=== PATIENT | female | born 1945 | race Caucasian/White ===

== ENCOUNTER 2020-09-25 14:39 | Outpatient (CLI) | payer MEDICARE ==
[2020-09-25 15:07] LABS: BASOPHILS # (AUTO) 0.1 10^3/uL (0.0-0.1); BASOPHILS % (AUTO) 0.8 %; EOSINOPHILS # (AUTO) 0.3 10^3/uL (0.0-0.7); EOSINOPHILS % (AUTO) 3.2 %; HCT - HEMATOCRIT 39.4 % (37.0-47.0); LYMPHOCYTES # (AUTO) 3.3 10^3/uL (1.5-3.5); MEAN CORPUSCULAR HEMOGLOBIN 31.4 pg (27.0-31.0); MEAN CORPUSCULAR VOLUME 95.2 fL (81.0-99.0); MEAN PLATELET VOLUME 9.1 fL (7.9-10.8); MONOCYTES # (AUTO) 0.6 10^3/uL (0.0-1.0); MONOCYTES % (AUTO) 6.6 %; NEUTROPHILS # (AUTO) 4.5 10^3/uL (1.5-6.6); NEUTROPHILS % (AUTO) 51.3 %; PLT - PLATELET COUNT 284 10^3/uL (130-450); RED BLOOD COUNT 4.14 10^6/uL (4.20-5.40); RED CELL DISTRIBUTION WIDTH 13.6 % (12.0-15.0); WHITE BLOOD COUNT 8.8 x10^3/uL (4.8-10.8)
[2020-09-25 15:27] LABS: ALBUMIN 4.2 g/dL (3.2-5.5); ALBUMIN/GLOBULIN RATIO 1.4 (1.0-2.2); ALKALINE PHOSPHATASE 76 IU/L (42-121); ALT ALANINE AMINOTRANSFERASE 25 IU/L (10-60); AST ASPARTATE AMINOTRANSFERASE 19 IU/L (10-42); BILIRUBIN,TOTAL 0.5 mg/dL (0.2-1.0); BUN - BLOOD UREA NITROGEN 19 mg/dL (6-20); CALCIUM 9.2 mg/dL (8.5-10.3); CARBON DIOXIDE - CO2 24 mmol/L (21-32); CHLORIDE 100 mmol/L (101-111); CHOL/HDL RATIO 5.7 (<4.4); CHOLESTEROL 256 mg/dL; CREATININE 1.1 mg/dL (0.4-1.0); GFR - MDRD 49 (>89); GLUCOSE 233 mg/dL (70-100); HDL CHOLESTEROL 45 mg/dL; POTASSIUM 4.4 mmol/L (3.5-5.0); SODIUM 136 mmol/L (135-145); TOTAL PROTEIN 7.2 g/dL (6.7-8.2); TRIGLYCERIDES 492 mg/dL
[2020-09-25 15:38] LABS: THYROID STIMULATING HORMONE 3.52 uIU/mL (0.34-5.60)
[2020-09-25 17:06] LABS: LDL CHOLESTEROL,DIRECT 151 mg/dL; LDLD/HDL RATIO 3.4 (<4.4)
[2020-09-25 19:58] LABS: ESTIMATED AVERAGE GLUCOSE 206 mg/dL (70-100); HEMOGLOBIN A1c% 8.8 % (4.27-6.07)
== END 2020-09-25 14:40 | disposition home or self-care (01) ==
LOC: LAB 14:39
PROVIDERS: ATTEND Internal Medicine
DX: I10 Essential (primary) hypertension (principal); E78.5 Hyperlipidemia, unspecified; E11.9 Type 2 diabetes mellitus without complications; E03.9 Hypothyroidism, unspecified
CPT/HCPCS: 36415; 80053; 80061; 83036; 83721; 84443; 85025

== ENCOUNTER 2021-01-06 07:56 | Outpatient (CLI) | payer MEDICARE ==
[2021-01-06 09:09] LABS: THYROID STIMULATING HORMONE 3.91 uIU/mL (0.34-5.60)
[2021-01-06 09:11] LABS: FREE T4 (FREE THYROXINE) 1.14 ng/dL (0.58-1.64)
[2021-01-06 12:45] LABS: ESTIMATED AVERAGE GLUCOSE 163 mg/dL (70-100); HEMOGLOBIN A1c% 7.3 % (4.27-6.07)
== END 2021-01-06 07:57 | disposition home or self-care (01) ==
LOC: LAB 07:56
PROVIDERS: ATTEND Internal Medicine
DX: E03.9 Hypothyroidism, unspecified (principal); E11.9 Type 2 diabetes mellitus without complications
CPT/HCPCS: 36415; 83036; 84439; 84443

== ENCOUNTER 2021-03-25 03:44 | Emergency (ER) | payer MEDICARE ==
[2021-03-25 04:13] LABS: BASOPHILS # (AUTO) 0.1 10^3/uL (0.0-0.1); BASOPHILS % (AUTO) 0.8 %; EOSINOPHILS # (AUTO) 0.4 10^3/uL (0.0-0.7); EOSINOPHILS % (AUTO) 4.2 %; HCT - HEMATOCRIT 40.5 % (37.0-47.0); HGB - HEMOGLOBIN 13.5 g/dL (12.0-16.0); LYMPHOCYTES # (AUTO) 4.4 10^3/uL (1.5-3.5); LYMPHOCYTES % (AUTO) 43.6 %; MEAN CORPUSCULAR HEMOGLOBIN 32.1 pg (27.0-31.0); MEAN CORPUSCULAR HGB CONC 33.3 g/dL (32.0-36.0); MEAN CORPUSCULAR VOLUME 96.2 fL (81.0-99.0); MEAN PLATELET VOLUME 9.2 fL (7.9-10.8); MONOCYTES # (AUTO) 0.6 10^3/uL (0.0-1.0); MONOCYTES % (AUTO) 5.7 %; NEUTROPHILS # (AUTO) 4.5 10^3/uL (1.5-6.6); NEUTROPHILS % (AUTO) 44.7 %; PLT - PLATELET COUNT 335 10^3/uL (130-450); RED BLOOD COUNT 4.21 10^6/uL (4.20-5.40); RED CELL DISTRIBUTION WIDTH 13.6 % (12.0-15.0); WHITE BLOOD COUNT 10.1 x10^3/uL (4.8-10.8)
--- NOTE | 2021-03-25 04:27 | ED Physician Documentation ---
PD HPI CHEST PAIN - Stated complaint Stated Complaint: CHEST PX - Chief complaint Chief Complaint: Cardiac - History obtained from History obtained from: Patient - History of Present Illness Timing - onset during: Rest Timing - duration: Hours Timing - details: Gradual onset, Intermittant Quality: Pain Radiation: Right upper extremity (right shoulder) Improved by: Other (no ameliorating factors) Worsened by: Other (no exacerbating factors) Associated symptoms: No: Shortness of air, Diaphoresis, Nausea, Feeling faint / dizzy, Palpitations Similar symptoms before: Has not had sx before Recently seen: Not recently seen - Additional information Additional information: c/o midline chest pain radiating to right shoulder, episodic and only at night for past 2-3 weeks. She does not have this during the day. She says she initially thought the timing was correlative with when she would take her aspirin and, per patient, her PMD prescribed plavix to take the place of aspirin, but she finds that the symptoms have not improved. She says the symptoms last all night (continuously for several hours each night) Review of Systems Constitutional: reports: Reviewed and negative Cardiac: reports: Chest pain / pressure. denies: Palpitations, Pedal edema Respiratory: reports: Reviewed and negative GI: reports: Reviewed and negative Musculoskeletal: reports: Reviewed and negative Neurologic: reports: Reviewed and negative PD PAST MEDICAL HISTORY - Past Medical History Past Medical History: Yes Cardiovascular: High cholesterol - Allergies Allergies/Adverse Reactions: Allergies Allergy/AdvReac Type Severity Reaction Status Date / Time No Known Drug Allergies Allergy Verified 03/25/21 04:09 PD ED PE NORMAL - Vitals Vital signs reviewed: Yes - General General: Alert and oriented X 3, No acute distress, Well developed/nourished - Cardiac Cardiac: RRR, No murmur, No gallop, No rub - Respiratory Respiratory: No respiratory distress, Clear bilaterally - Abdomen Abdomen: Soft, Non tender - Extremities Extremities: No edema Results - Vitals Vitals: Oxygen O2 Source Room air - EKG (time done) #1 Rate: Rate (enter#) (82) Rhythm: NSR [place]: Normal Intervals: Normal [place] QRS: Normal Ischemia: Normal ST segments Other comments: Other comments (artifact V1-V3) #2 Rate: Rate (enter#) (76) Rhythm: NSR [place]: Normal Intervals: Normal [place] QRS: Normal Ischemia: Normal ST segments - Labs Labs: Laboratory Tests 03/25/21 03/25/21 03/25/21 04:02 04:02 04:02 WBC 10.1 RBC 4.21 Hgb 13.5 Hct 40.5 MCV 96.2 MCH 32.1 H MCHC 33.3 RDW 13.6 Plt Count 335 MPV 9.2 Neut # (Auto) 4.5 Lymph # (Auto) 4.4 H [place] # (Auto) 0.6 Eos # (Auto) 0.4 Baso # (Auto) 0.1 Absolute Nucleated RBC 0.00 Nucleated RBC % 0.0 Sodium 133 L Potassium 4.4 Chloride 97 L Carbon Dioxide 24 Anion Gap 12.0 BUN 31 H Creatinine 1.3 H Estimated GFR (MDRD) 40 L Glucose 203 H Calcium 9.5 Total Bilirubin 0.4 AST 17 ALT 20 Alkaline Phosphatase 66 Troponin I High Sens 5.4 Total Protein 7.3 Albumin 4.3 Globulin 3.0 Albumin/Globulin Ratio 1.4 Lipase 30 - Rads (name of study) chest xray Radiology: Prelim report reviewed, See rad report PD MEDICAL DECISION MAKING - ED course Complexity details: reviewed results, re-evaluated patient, considered differential, d/w patient ED course: c/o nightly chest pain for past few weeks. No concerning findings on EKG, CXR, blood tests (including high sensitivity troponin). Results d/w patient, instructed to follow up with primary care provider and return precautions discussed. Departure - Departure Disposition: 01 Home, Self Care Clinical Impression: Chest pain Qualifiers: Chest pain type: unspecified Qualified Code(s): R07.9 - Chest pain, unspecified Condition: Good Instructions: ED Chest Pain Atypical Unkn Cause Follow-Up: Arnie Jarrett MD [Primary Care Provider] - Discharge Date/Time: 03/25/21 05:57
[2021-03-25 04:28] LABS: ALBUMIN 4.3 g/dL (3.2-5.5); ALBUMIN/GLOBULIN RATIO 1.4 (1.0-2.2); BILIRUBIN,TOTAL 0.4 mg/dL (0.2-1.0); CALCIUM 9.5 mg/dL (8.5-10.3); CREATININE 1.3 mg/dL (0.4-1.0); POTASSIUM 4.4 mmol/L (3.5-5.0); TOTAL PROTEIN 7.3 g/dL (6.7-8.2)
[2021-03-25 05:49] VITALS: BP 143/69
--- NOTE | 2021-03-25 07:58 | XRAY Report ---
PROCEDURE: Chest 1 View X-Ray INDICATIONS: Chest pain TECHNIQUE: One view of the chest was acquired. COMPARISON: None. FINDINGS: Surgical changes and devices: Surgical clips are seen projecting of the left breast. Lungs and pleura: No pleural effusions or pneumothorax. Lungs are clear. Mediastinum: Mediastinal contours appear normal. Heart size is normal. Mild aortic atherosclerotic calcifications. Bones and chest wall: No suspicious bony lesions. Overlying soft tissues appear unremarkable. IMPRESSION: No acute cardiopulmonary abnormality. There is no significant discrepancy when compared with the overnight teleradiology report. Reviewed by: Sergei Erickson MD on 03/25/2021 7:56 AM [facility] Approved by: Sergei Erickson MD on 03/25/2021 7:56 AM [facility] Station ID: [id number]
== END 2021-03-25 05:57 | disposition home or self-care (01) ==
LOC: ED 03:44
DX: R07.9 Chest pain, unspecified (principal); M25.511 Pain in right shoulder; Z79.82 Long term (current) use of aspirin
CPT/HCPCS: 36415; 80053; 83690; 84484; 85025; 93005; 99284

== ENCOUNTER 2021-04-09 10:02 | Outpatient (CLI) | payer MEDICARE ==
[2021-04-09 10:19] LABS: BASOPHILS # (AUTO) 0.1 10^3/uL (0.0-0.1); BASOPHILS % (AUTO) 0.9 %; EOSINOPHILS # (AUTO) 0.5 10^3/uL (0.0-0.7); EOSINOPHILS % (AUTO) 4.9 %; HCT - HEMATOCRIT 41.4 % (37.0-47.0); HGB - HEMOGLOBIN 13.7 g/dL (12.0-16.0); LYMPHOCYTES # (AUTO) 3.8 10^3/uL (1.5-3.5); LYMPHOCYTES % (AUTO) 40.3 %; MEAN CORPUSCULAR HEMOGLOBIN 31.6 pg (27.0-31.0); MEAN CORPUSCULAR HGB CONC 33.1 g/dL (32.0-36.0); MEAN CORPUSCULAR VOLUME 95.6 fL (81.0-99.0); MEAN PLATELET VOLUME 8.8 fL (7.9-10.8); MONOCYTES # (AUTO) 0.5 10^3/uL (0.0-1.0); MONOCYTES % (AUTO) 5.8 %; NEUTROPHILS # (AUTO) 4.4 10^3/uL (1.5-6.6); NEUTROPHILS % (AUTO) 47.6 %; PLT - PLATELET COUNT 344 10^3/uL (130-450); RED BLOOD COUNT 4.33 10^6/uL (4.20-5.40); RED CELL DISTRIBUTION WIDTH 13.5 % (12.0-15.0); WHITE BLOOD COUNT 9.3 x10^3/uL (4.8-10.8)
[2021-04-09 10:35] LABS: CHOLESTEROL 222 mg/dL; HDL CHOLESTEROL 55 mg/dL; LDL CHOLESTEROL,CALCULATED 106 mg/dL; LDL/HDL RATIO 1.9 (<4.4); TRIGLYCERIDES 305 mg/dL; VLDL CHOLESTEROL 61 mg/dL
[2021-04-09 10:47] LABS: THYROID STIMULATING HORMONE 5.53 uIU/mL (0.34-5.60)
[2021-04-09 10:53] LABS: FERRITIN 8.4 ng/mL (11.0-306.8)
[2021-04-09 11:53] LABS: ESTIMATED AVERAGE GLUCOSE 154 mg/dL (70-100)
== END 2021-04-09 10:03 | disposition home or self-care (01) ==
LOC: LAB 10:02
PROVIDERS: ATTEND Internal Medicine
DX: E11.9 Type 2 diabetes mellitus without complications (principal); D50.8 Other iron deficiency anemias; E03.9 Hypothyroidism, unspecified
CPT/HCPCS: 36415; 80061; 82728; 83036; 83721; 84443; 85025

== ENCOUNTER 2021-05-22 07:20 | Day surgery (SDC) | payer MEDICARE ==
[2021-05-22] MEDS ORDERED: LACTATED RINGERS 1,000 ML IV ONE (07:24)
[2021-05-22] MEDS ORDERED: MIDAZOLAM 2 MG/2 ML VIAL ONE (07:46)
[2021-05-22] MEDS ORDERED: fentaNYL 100 MCG/2 ML VIAL ONE (07:46)
--- NOTE | 2021-05-22 07:51 | ANESTHESIA ---
Pre-Anesthesia VS, & Labs - Diagnosis epigastric pain, hx of colon polyps - Procedure EGD, colonoscopy Vital Signs: Temp Pulse Resp BP Pulse Ox 36.2 C L 95 18 160/89 H 99 05/22/21 07:25 05/22/21 07:25 05/22/21 07:25 05/22/21 07:25 05/22/21 07:25 Height: 5 ft 5 in Weight (kg): 80.7 kg Body Mass Index: 29.6 BMI Classification: Overweight - NPO >8 hours - Is Patient ?: No - Lab Results Lab results reviewed: Yes Home Medications and Allergies Home Medications: Ambulatory Orders Atorvastatin [Lipitor] 20 mg ORAL DAILY 05/21/21 Levothyroxine Sodium [Levothyroxine] 50 mcg PO DAILY 05/21/21 Metoprolol Succinate [[place] Sprinkle] 25 mg PO DAILY 05/21/21 Omeprazole Magnesium 20 mg PO BID 05/21/21 Valsartan/Hydrochlorothiazide [Diovan Hct 80-12.5 mg Tablet] 1 each PO DAILY 05/21/21 Venlafaxine HCl [Effexor Xr] 300 mg PO DAILY 05/21/21 metFORMIN [Glucophage] 1,000 mg PO BIDWM 05/21/21 Atorvastatin [Lipitor] 20 mg ORAL DAILY 05/21/21 Levothyroxine Sodium [Levothyroxine] 50 mcg PO DAILY 05/21/21 Metoprolol Succinate [[place] Sprinkle] 25 mg PO DAILY 05/21/21 Omeprazole Magnesium 20 mg PO BID 05/21/21 Valsartan/Hydrochlorothiazide [Diovan Hct 80-12.5 mg Tablet] 1 each PO DAILY 05/21/21 Venlafaxine HCl [Effexor Xr] 300 mg PO DAILY 05/21/21 metFORMIN [Glucophage] 1,000 mg PO BIDWM 05/21/21 Allergies/Adverse Reactions: Allergies Allergy/AdvReac Type Severity Reaction Status Date / Time No Known Drug Allergies Allergy Verified 03/25/21 04:09 Anes History & Medical History - Anesthetic History Anesthesia Complications: reports: No previous complications Family history of Anesthesia Complications: Denies Family history of Malignant Hyperthermia: Denies - Medical History Cardiovascular: reports: Hypertension, High cholesterol Gastrointestinal: reports: GERD Endocrine/Autoimmune: reports: Type 2 diabetes, HyPOthyroidism Smoking Status: Never smoker Psychosocial: reports: No issues indicated, Alcohol (rare) History of Cancer?: No - Surgical History General: reports: Cholecystectomy, Colonoscopy, EGD, Other Cardiothoracic: reports: Other (femoral artery stent@R) Gynecologic: reports: Mastectomy Exam General: Alert, Oriented x3, Cooperative Mouth Openin Fingerbreadth Neck Mobility: Normal Mallampati classification: II Thyromental Distance: 4-6 cm Respiratory: Lungs clear, Normal breath sounds, No respiratory distress Cardiovascular: Regular rate Neurological: Normal speech Mental/Cognitive Status: Alert/Oriented X3, Normal for patient Cognitive Status: Within normal limits Plan Anesthesia Type: Total IV Consent for Procedure(s) Verified and Reviewed: Yes Code Status: Attempt Resuscitation ASA classification: 2-Mild systemic disease Is this case an emergency?: No
[2021-05-22] MEDS ORDERED: PROPOFOL 500 MG/50 ML 500 MG/50 ML VIAL ONE (07:54)
[2021-05-22] MEDS ORDERED: LACTATED RINGERS 100 ML IV ONE (10:01)
[2021-05-22 10:39] VITALS: BP 106/60
--- NOTE | 2021-05-22 11:07 | ANESTHESIA POST OP EVALUATION ---
Anesthesia Post Eval - Post Anesthesia Eval Vitals: Last Vital Signs Temp 36.6 C 05/22/21 10:29 Pulse 70 05/22/21 10:29 Resp 18 05/22/21 10:29 BP 106/60 05/22/21 10:29 Pulse Ox 98 05/22/21 10:29 CV Function Including HR & BP: Stable Pain Control: Satisfactory Nausea & Vomiting: Negative Mental Status: Baseline Respiratory Status: Airway Patent Hydration Status: Satisfactory Anesthesia Complications: None
== END 2021-05-22 07:21 | disposition home or self-care (01) ==
LOC: SDS 07:20
PROVIDERS: ATTEND Surgery
PROC: 0DB78ZX Excision of Stomach, Pylorus, Via Natural or Artificial Opening Endoscopic, Diagnostic (ICD-10-PCS; 2021-05-22)
PROC: 0DBN8ZZ Excision of Sigmoid Colon, Via Natural or Artificial Opening Endoscopic (ICD-10-PCS; principal; 2021-05-22 09:00)
PROC: 0DB98ZX Excision of Duodenum, Via Natural or Artificial Opening Endoscopic, Diagnostic (ICD-10-PCS; 2021-05-22 09:00)
DX: Z12.11 Encounter for screening for malignant neoplasm of colon (principal); K57.30 Diverticulosis of large intestine without perforation or abscess without bleeding; K63.5 Polyp of colon; K21.9 Gastro-esophageal reflux disease without esophagitis; R10.13 Epigastric pain; E11.9 Type 2 diabetes mellitus without complications; Z79.84 Long term (current) use of oral hypoglycemic drugs; Z98.84 Bariatric surgery status
CPT/HCPCS: 43239; 45380; J7120

== ENCOUNTER 2021-05-27 09:22 | Outpatient (CLI) | payer MEDICARE ==
--- NOTE | 2021-05-27 09:49 | CARDIAC PROCEDURE NOTE ---
Stress Test Report Service Date: 05/27/21 Service Time: 09:30 Ordering Provider: Arnie Jarrett MD Indication for Test: Assess chest discomfort, in patient with history of prior smoking and PAD. 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 She has a history of right iliofemoral stent placement for PAD in about 1997, for which she has been treated for many years with aspirin at 325 mg daily. She was seen by Dr. Jarrett in late February, with concern for upper GI discomfort with some radiation to her right shoulder that typically happened in the evening after taking her aspirin dose. She noted that discontinuation of aspirin seemed to be associated with resolution of the symptoms, with recurrence upon re-initiation. She was trialed on clopidogrel with similar symptoms and thus has been off of antiplatelet therapy for several weeks. She reports recently undergoing upper and lower GI endoscopy without significant findings per her understanding. While she reports previously being quite active with "avid walking", she has lost her desire to be physically active, in part due to a number of family circumstances and deaths in her family. She experiences some leg fatigue and dyspnea with exercise, but denies experiencing abdominal, chest or shoulder discomfort with activity. She reports becoming diaphoretic with minimal provocation but no recent changes. Cardiac Risk Factors: Multiple ASCVD risks, including hypertension, hyperlipidemia, diabetes and history of CAD in both parents (father starting in his 40's, mother in her 70's). Was a tobacco smoker, but quit in 1997, at time of diagnosis of PAD with placement of right inguinal stenting. Type of Stress Test: ETT with Echocardiography Procedure: -Exercise Treadmill Test- After signing informed consent, the patient underwent resting echo imaging and then performed treadmill exercise using a Helio protocol. The patient exercised for 2 minutes 59 seconds and achieved a peak heart rate of 132 (90 percent predicted maximum heart rate for age), and an estimated workload of 4.6 METS. The test was terminated due to abrupt and marked dyspnea, with sensation of being about to "fall out" on the treadmill. Resting heart rate: 93 Peak heart rate: 132 Normal response to exercise. Resting BP: 141/75 Peak BP: 246/81 (was 213/85 when test was stopped). Hypertensive BP response to exercise. Rhythm during exercise: Sinus rhythm throughout, with rare PAC and PVCs, with a single PAC couplet noted. Symptoms: She noted leg fatigue in mid stage 1, followed by symptoms described above in late stage 1; she denied abdominal, chest and right shoulder discomfort. EKG at rest showed normal sinus rhythm, normal in all aspects. EKG at peak stress showed J-point depression with upsloping ST segments, that progressed during Recovery period, with downsloping ST segments and T wave inversion meeting diagnostic criteria for ischemia. In Recovery BP initially increased then gradually decreased, though remaining elevated (191/70) at 7 minutes. HR decreased quickly in early recovery, but remained elevated above baseline at 7:00 (110 bpm). Echo imaging performed at rest and with stress will be reported separately. I, Harshil Thomas MD, was present throughout this treadmill stress study and supervised it in its entirety. Summary: 1) Markedly reduced exercise tolerance for age as evidenced by RAY of 42%. 2) Normal resting EKG. 3) Adequate level of exercise was achieved on this treadmill stress test, but with concerning sudden clinical deterioration in late stage 1, prompting abrupt test discontinuation. 4) Abnormal markedly hypertensive BP response to exercise. 5) Borderline ischemic changes by EKG criteria were seen at peak stress, becoming frankly abnormal in Recovery (higher risk than when seen with exercise only). 6) Echo image interpretation reveals normal left ventricular size and systolic function, with no clear evidence of prior infarct or inducible ischemia by wall motion analysis. Note ejection fraction (67%) did not augment with exercise, which could be an ischemic response. See separate report for more details. CONCLUSIONS: 1) Clinically abnormal and potentially high risk ETT, in view of sudden functional deterioration and evolution of ischemic EKG changes in recovery. 2) Patient advised to try taking ASA at 81 mg daily, to see if tolerated; risk seems acceptable given reported reassuring results of recent upper and lower endoscopy. 3) I discussed the ETT results with both the patient and referring provider (Dr Jarrett), recommending further evaluation by a Alternative Dispute Resolution Mediator (e.g. Dr Mark) with consideration of cardiac catheterization for definitive diagnosis. Patient was provided with a CD containing her images for possible review.
== END 2021-05-27 09:23 | disposition home or self-care (01) ==
LOC: DI 09:22
PROVIDERS: ATTEND Internal Medicine
DX: I20.9 Angina pectoris, unspecified (principal); Z82.49 Family history of ischemic heart disease and other diseases of the circulatory system; I10 Essential (primary) hypertension; E78.5 Hyperlipidemia, unspecified; E11.9 Type 2 diabetes mellitus without complications; Z87.891 Personal history of nicotine dependence
CPT/HCPCS: 93016; 93017; 93018; 93350

== ENCOUNTER 2021-06-20 08:19 | Outpatient (CLI) | payer MEDICARE ==
[2021-06-20 08:59] LABS: CREATININE 1.6 mg/dL (0.4-1.0)
== END 2021-06-20 08:20 | disposition home or self-care (01) ==
LOC: LAB 08:19
PROVIDERS: ATTEND Internal Medicine Cardiovascular Disease
DX: R06.09 Other forms of dyspnea (principal)
CPT/HCPCS: 36415; 82565

== ENCOUNTER 2021-09-10 10:14 | Outpatient (CLI) | payer MEDICARE ==
[2021-09-10 10:25] LABS: BASOPHILS # (AUTO) 0.1 10^3/uL (0.0-0.1); BASOPHILS % (AUTO) 1.2 %; EOSINOPHILS # (AUTO) 0.7 10^3/uL (0.0-0.7); EOSINOPHILS % (AUTO) 6.9 %; HCT - HEMATOCRIT 40.6 % (37.0-47.0); LYMPHOCYTES # (AUTO) 3.7 10^3/uL (1.5-3.5); LYMPHOCYTES % (AUTO) 38.9 %; MEAN CORPUSCULAR VOLUME 96.7 fL (81.0-99.0); MEAN PLATELET VOLUME 9.1 fL (7.9-10.8); MONOCYTES # (AUTO) 0.6 10^3/uL (0.0-1.0); MONOCYTES % (AUTO) 6.5 %; NEUTROPHILS # (AUTO) 4.3 10^3/uL (1.5-6.6); NEUTROPHILS % (AUTO) 45.8 %; PLT - PLATELET COUNT 347 10^3/uL (130-450); RED CELL DISTRIBUTION WIDTH 13.7 % (12.0-15.0); WHITE BLOOD COUNT 9.5 x10^3/uL (4.8-10.8)
== END 2021-09-10 10:15 | disposition home or self-care (01) ==
LOC: LAB 10:14
PROVIDERS: ATTEND Family Medicine
DX: D70.9 Neutropenia, unspecified (principal)
CPT/HCPCS: 36415; 85025

== ENCOUNTER 2021-10-28 10:24 | Outpatient (CLI) | payer MEDICARE ==
[2021-10-28 15:04] LABS: BASOPHILS # (AUTO) 0.1 10^3/uL (0.0-0.1); BASOPHILS % (AUTO) 0.7 %; EOSINOPHILS # (AUTO) 0.5 10^3/uL (0.0-0.7); EOSINOPHILS % (AUTO) 4.4 %; HCT - HEMATOCRIT 41.4 % (37.0-47.0); LYMPHOCYTES # (AUTO) 3.8 10^3/uL (1.5-3.5); LYMPHOCYTES % (AUTO) 34.9 %; MEAN CORPUSCULAR HEMOGLOBIN 30.4 pg (27.0-31.0); MEAN CORPUSCULAR HGB CONC 31.4 g/dL (32.0-36.0); MEAN CORPUSCULAR VOLUME 96.7 fL (81.0-99.0); MEAN PLATELET VOLUME 9.4 fL (7.9-10.8); MONOCYTES # (AUTO) 0.8 10^3/uL (0.0-1.0); NEUTROPHILS # (AUTO) 5.6 10^3/uL (1.5-6.6); NEUTROPHILS % (AUTO) 52.4 %; PLT - PLATELET COUNT 379 10^3/uL (130-450); RED BLOOD COUNT 4.28 10^6/uL (4.20-5.40); WHITE BLOOD COUNT 10.8 x10^3/uL (4.8-10.8)
[2021-10-28 15:07] LABS: ESTIMATED AVERAGE GLUCOSE 163 mg/dL (70-100); HEMOGLOBIN A1c% 7.3 % (4.27-6.07)
[2021-10-28 15:20] LABS: ALBUMIN 4.2 g/dL (3.2-5.5); ALBUMIN/GLOBULIN RATIO 1.5 (1.0-2.2); ALKALINE PHOSPHATASE 75 IU/L (42-121); ALT ALANINE AMINOTRANSFERASE 23 IU/L (10-60); AST ASPARTATE AMINOTRANSFERASE 19 IU/L (10-42); BILIRUBIN,TOTAL 0.5 mg/dL (0.2-1.0); BUN - BLOOD UREA NITROGEN 22 mg/dL (6-20); CALCIUM 9.5 mg/dL (8.5-10.3); CARBON DIOXIDE - CO2 27 mmol/L (21-32); CHLORIDE 103 mmol/L (101-111); CHOL/HDL RATIO 3.3 (<4.4); CHOLESTEROL 177 mg/dL; CREATININE 1.2 mg/dL (0.4-1.0); GFR - MDRD 44 (>89); GLUCOSE 162 mg/dL (70-100); HDL CHOLESTEROL 53 mg/dL; LDL CHOLESTEROL,CALCULATED 81 mg/dL; LDL/HDL RATIO 1.5 (<4.4); POTASSIUM 4.7 mmol/L (3.5-5.0); SODIUM 139 mmol/L (135-145); TRIGLYCERIDES 214 mg/dL; VLDL CHOLESTEROL 43 mg/dL
[2021-10-28 15:30] LABS: THYROID STIMULATING HORMONE 4.09 uIU/mL (0.34-5.60)
[2021-10-28 15:36] LABS: FERRITIN 8.7 ng/mL (11.0-306.8)
== END 2021-10-28 10:25 | disposition home or self-care (01) ==
LOC: LAB.S 10:24
PROVIDERS: ATTEND Registered Nurse
DX: E11.9 Type 2 diabetes mellitus without complications (principal); R77.8 Other specified abnormalities of plasma proteins; E03.9 Hypothyroidism, unspecified
CPT/HCPCS: 36415; 80053; 80061; 82728; 83036; 83721; 84443; 85025

== ENCOUNTER 2022-07-14 10:49 | Outpatient (CLI) | payer MEDICARE ==
[2022-07-14 11:07] LABS: BASOPHILS # (AUTO) 0.1 10^3/uL (0.0-0.1); BASOPHILS % (AUTO) 0.8 %; EOSINOPHILS # (AUTO) 0.5 10^3/uL (0.0-0.7); EOSINOPHILS % (AUTO) 5.2 %; HCT - HEMATOCRIT 41.2 % (37.0-47.0); HGB - HEMOGLOBIN 13.5 g/dL (12.0-16.0); LYMPHOCYTES # (AUTO) 2.8 10^3/uL (1.5-3.5); LYMPHOCYTES % (AUTO) 32.1 %; MEAN CORPUSCULAR HEMOGLOBIN 31.7 pg (27.0-31.0); MEAN CORPUSCULAR HGB CONC 32.8 g/dL (32.0-36.0); MEAN CORPUSCULAR VOLUME 96.7 fL (81.0-99.0); MEAN PLATELET VOLUME 9.1 fL (7.9-10.8); MONOCYTES # (AUTO) 0.5 10^3/uL (0.0-1.0); MONOCYTES % (AUTO) 5.7 %; NEUTROPHILS # (AUTO) 4.8 10^3/uL (1.5-6.6); NEUTROPHILS % (AUTO) 55.9 %; PLT - PLATELET COUNT 300 10^3/uL (130-450); RED BLOOD COUNT 4.26 10^6/uL (4.20-5.40); RED CELL DISTRIBUTION WIDTH 12.7 % (12.0-15.0); WHITE BLOOD COUNT 8.6 x10^3/uL (4.8-10.8)
[2022-07-14 11:13] LABS: PT - PROTHROMBIN TIME 11.5 secs (9.9-12.6)
[2022-07-14 11:24] LABS: ALBUMIN 3.9 g/dL (3.2-5.5); ALBUMIN/GLOBULIN RATIO 1.1 (1.0-2.2); ALKALINE PHOSPHATASE 79 IU/L (42-121); ALT ALANINE AMINOTRANSFERASE 22 IU/L (10-60); AST ASPARTATE AMINOTRANSFERASE 21 IU/L (10-42); BILIRUBIN,TOTAL 0.5 mg/dL (0.2-1.0); BUN - BLOOD UREA NITROGEN 23 mg/dL (6-20); CALCIUM 9.2 mg/dL (8.5-10.3); CARBON DIOXIDE - CO2 25 mmol/L (21-32); CHLORIDE 103 mmol/L (101-111); CHOL/HDL RATIO 3.4 (<4.4); CHOLESTEROL 163 mg/dL; CREATININE 1.2 mg/dL (0.4-1.0); ESTIMATED AVERAGE GLUCOSE 146 mg/dL (70-100); GFR - MDRD 44 (>89); GLUCOSE 173 mg/dL (70-100); HDL CHOLESTEROL 48 mg/dL; HEMOGLOBIN A1c% 6.7 % (4.27-6.07); LDL CHOLESTEROL,CALCULATED 79 mg/dL; LDL/HDL RATIO 1.6 (<4.4); POTASSIUM 4.3 mmol/L (3.5-5.0); SODIUM 138 mmol/L (135-145); TOTAL PROTEIN 7.3 g/dL (6.7-8.2); TRIGLYCERIDES 179 mg/dL; VLDL CHOLESTEROL 36 mg/dL
[2022-07-14 11:36] LABS: THYROID STIMULATING HORMONE 2.24 uIU/mL (0.34-5.60)
[2022-07-14 21:36] LABS: CREATININE,URINE 139.7 mg/dL; MICROALBUM/CREATININE RATIO,UR 16.5 ug/mg (<30.0); MICROALBUMIN,URINE 2.3 mg/dL (0-300.0)
== END 2022-07-14 10:50 | disposition home or self-care (01) ==
LOC: LAB 10:49
PROVIDERS: ATTEND Internal Medicine Cardiovascular Disease
DX: E78.5 Hyperlipidemia, unspecified (principal); I70.201 Unspecified atherosclerosis of native arteries of extremities, right leg; Z79.899 Other long term (current) drug therapy; E11.9 Type 2 diabetes mellitus without complications; E03.9 Hypothyroidism, unspecified; F41.9 Anxiety disorder, unspecified; F32.A Depression, unspecified
CPT/HCPCS: 36415; 80053; 80061; 82043; 82306; 82570; 83036; 83721; 84443; 85025; 85610

== ENCOUNTER 2022-08-14 08:00 | Outpatient (CLI) | payer MEDICARE | END 2022-08-14 23:59 | disposition home or self-care (01) | LOC: LAB.N 08:00 | PROVIDERS: ATTEND Registered Nurse | DX: E11.9 Type 2 diabetes mellitus without complications (principal) | CPT/HCPCS: 82962 ==